=== PATIENT | female | born 1950 | race Caucasian/White ===

== ENCOUNTER → 2025-02-27 12:42 | Outpatient (REF) | payer MEDICARE, OTHER, SELFPAY ==
[2025-02-27 13:21] VITALS: BP 158/99; BP_SYST 62
[2025-02-27 14:20] VITALS: BP 166/88; BP_SYST 65
== END ==
LOC: RADI 12:42
PROVIDERS: ATTENDING PHYSICIAN Psychiatry & Neurology Neurology; FAMILY PHYSICIAN Family Medicine
DX: M70.71 Other bursitis of hip, right hip (principal); M25.551 Pain in right hip
CPT/HCPCS: 20610; 77012

== ENCOUNTER → 2025-04-24 12:25 | Outpatient (REF) | payer MEDICARE, OTHER, SELFPAY | LOC: RADI 12:25 | PROVIDERS: ATTENDING PHYSICIAN Psychiatry & Neurology Neurology; FAMILY PHYSICIAN Family Medicine | DX: M70.71 Other bursitis of hip, right hip (principal); M79.651 Pain in right thigh; M25.551 Pain in right hip | CPT/HCPCS: 20610; 77012 ==